=== PATIENT | male | born 1995 | race Caucasian/White ===

== ENCOUNTER 2024-12-23 11:56 | Emergency (ER) | payer BC ==
[~2024-12-23] VITALS: Ht 172.7 cm; Wt 93.0 kg
[2024-12-23] MEDS ORDERED: FAMOTIDINE (20 MG) 20 MG TABLET ONE (12:35)
[2024-12-23] MEDS ORDERED: LIDOCAINE VISCOUS 2% UD 15 ML UDC ONE (12:35)
[2024-12-23] MEDS ORDERED: MAG HYDROX/AL HYDROX/SIMETH 30 ML UDC ONE (12:35)
[2024-12-23] MEDS: LIDOCAINE VISCOUS 2% UD 15 ML UDC MM ONE (12:41)
[2024-12-23] MEDS: MAG HYDROX/AL HYDROX/SIMETH 30 ML UDC PO ONE (12:42)
[2024-12-23] MEDS: FAMOTIDINE (20 MG) 20 MG TABLET PO ONE (12:42)
[2024-12-23 12:45] LABS: BASOPHILS % (AUTO) 0.7 % (0.0-2.0); EOSINOPHILS % (AUTO) 0.6 % (0.0-6.0); HEMATOCRIT 43 % (39-51); LYMPHOCYTES # (AUTO) 1.9 K/uL (0.8-4.8); LYMPHOCYTES % (AUTO) 27.3 % (20.0-44.0); MEAN CORPUSCULAR HEMOGLOBIN 28 PG (26.0-33.0); MEAN CORPUSCULAR HGB CONC 35 g/dl (31.0-36.0); MEAN CORPUSCULAR VOLUME 80 fL (80-96); MONOCYTES # (AUTO) 0.4 K/uL (0.1-1.30); MONOCYTES % (AUTO) 6.2 % (2.0-12.0); NEUTROPHILS # (AUTO) 4.5 K/uL (1.8-8.9); NEUTROPHILS % (AUTO) 65.2 % (43.0-81.0); PLATELET COUNT (AUTO) 308 K/uL (150-450); RED BLOOD CELL COUNT(AUTO) 5.36 MIL/uL (4.5-6.0); RED CELL DISTRIBUTION WIDTH 12.5 % (11.5-15.0); WHITE BLOOD COUNT (AUTO) 6.9 K/uL (4.3-11.0)
[2024-12-23 13:02] LABS: CALCIUM, SERUM 9.3 mg/dL (8.5-10.1); CARBON DIOXIDE 29 mmol/L (21-32); CHLORIDE 101 mmol/L (98-107); GLUCOSE 102 mg/dL (74-106); POTASSIUM 3.7 mmol/L (3.5-5.1); SODIUM SERUM 137 mmol/L (136-145); UREA NITROGEN, BLOOD 14 mg/dL (7-18)
[2024-12-23] MEDS ORDERED: OMEP20TA20 PO (13:37)
[2024-12-23 13:58] VITALS: BP 122/81; TEMP 98.3; O2SAT 100
== END 2024-12-23 13:59 | disposition home or self-care (01) ==
LOC: ER 12:03
DX: R07.89 Other chest pain (principal); R10.13 Epigastric pain; R06.02 Shortness of breath; R42 Dizziness and giddiness; Z79.899 Other long term (current) drug therapy; Z60.2 Problems related to living alone
CPT/HCPCS: 36415; 71045-TC; 80048-TC; 84484-TC; 85025-TC